=== PATIENT | female | born 1985 | race American Indian/Alaskan Native ===

== ENCOUNTER 2018-10-09 21:30 | Outpatient (CLI) | payer OTHER ==
[2018-10-09 22:04] VITALS: BP 124/65
[2018-10-10] MEDS ORDERED: LACTATED RINGERS 1,000 ML IV ONE (00:22)
== END 2018-10-09 22:55 | disposition home or self-care (01) ==
LOC: TRG 21:30 → LD 21:36 → TRG 22:55
PROVIDERS: ATTEND Obstetrics & Gynecology
DX: O60.03 Preterm labor without delivery, third trimester (principal); Z3A.39 39 weeks gestation of pregnancy
CPT/HCPCS: 59025

== ENCOUNTER 2018-10-12 14:20 | Outpatient (CLI) | payer OTHER ==
[2018-10-12 14:37] VITALS: BP 110/56
[2018-10-12] MEDS ORDERED: VISTARIL PO ONE (15:30)
[2018-10-12] MEDS ORDERED: VISTARIL ONE (15:40)
== END 2018-10-12 15:58 | disposition home or self-care (01) ==
LOC: TRG 14:20
PROVIDERS: ATTEND Obstetrics & Gynecology
DX: O47.1 False labor at or after 37 completed weeks of gestation (principal); Z3A.39 39 weeks gestation of pregnancy
CPT/HCPCS: 59025; Q0177

== ENCOUNTER 2018-10-12 22:45 | Inpatient (IN) | payer OTHER ==
[2018-10-12] MEDS ORDERED: SUBLIMAZE IV PRN (22:57)
[2018-10-12] MEDS ORDERED: STADOL IV PRN (22:57)
[2018-10-12] MEDS ORDERED: BRETHINE SUB-Q PRN ×2 (22:57→23:31)
[2018-10-12] MEDS ORDERED: MINERAL OIL PO PRN ×2 (22:57→23:31)
[2018-10-12] MEDS ORDERED: BRETHINE IVP PRN ×2 (22:57→23:31)
[2018-10-12] MEDS ORDERED: XYLOCAINE 2% INFILTRATI ONE ×2 (22:57→23:31)
[2018-10-12] MEDS ORDERED: AMPICILLIN/NS 2 GM/100 ML 2 GM/100 ML BAG IV ONE (22:57)
[2018-10-12] MEDS ORDERED: PITOCin/NS 20 UNIT/1000ML DRIP 20 UNITS/1,000 ML BAG IV SCH (23:00)
[2018-10-12] MEDS: LACTATED RINGERS 1,000 ML IV SCH (23:16)
--- NOTE | 2018-10-12 23:29 | History and Physical Report ---
History of Present Illness Date of examination: 10/12/18 Date of admission: 10/12/18 23:02 Chief complaint: Labor History of present illness: Pt is a 33yo BF EDC 10/13/18; EGA 39 6/7 weeks presents to L&D complaining of RUC's q 3-4 mins. She has not received care with this , but course has been unremarkable and GBS is unknown. Past History Past Medical History: asthma Past Surgical History: no surgical history Social history: no significant social history - Obstetrical History Expected Date of Delivery: 10/13/18 Actual Gestation: 40 Week(s) 0 Day(s) : 3 Medications and Allergies Allergies Allergy/AdvReac Type Severity Reaction Status Date / Time No Known Allergies Allergy Verified 10/12/18 22:57 Active Meds: Active Medications Butorphanol Tartrate (Stadol) 2 mg IV Q2H PRN PRN Reason: Pain , Severe (7-10) Ephedrine Sulfate (Ephedrine Sulfate) 10 mg IV Q2M PRN PRN Reason: Hypotension Fentanyl (Sublimaze) 100 mcg IV Q2H PRN PRN Reason: Labor Pain Last Admin: 10/12/18 23:20 Dose: 100 mcg Documented by: Oxytocin/Sodium Chloride (Pitocin/Ns 20 Unit/1000ml Drip) 20 units in 1,000 mls @ 125 mls/hr IV DIRECT ZHANNA Lactated Ringer's (Lactated Ringers) 1,000 mls @ 125 mls/hr IV DIRECT ZHANNA Last Admin: 10/12/18 23:16 Dose: 125 mls/hr Documented by: Ampicillin Sodium (Ampicillin/Ns 2 Gm/100 Ml) 2 gm in 100 mls @ 100 mls/hr IV ONCE ONE; Protocol Stop: 10/12/18 23:56 Last Admin: 10/12/18 23:15 Dose: 100 mls/hr Documented by: Ampicillin Sodium (Ampicillin/Ns 1 Gm/50 Ml) 1 gm in 50 mls @ 100 mls/hr IV Q4HR ZHANNA; Protocol Mineral Oil (Mineral Oil) 30 ml PO QHS PRN PRN Reason: Constipation Terbutaline Sulfate (Brethine) 0.25 mg SUB-Q ONCE PRN PRN Reason: Hyperstimulation/Hypertonicity Terbutaline Sulfate (Brethine) 0.25 mg IVP ONCE PRN PRN Reason: Hyperstimulation/Hypertonicity Review of Systems All systems: negative - Physical Exam Cardiovascular: Regular rate Lungs: Positive: Clear to auscultation Abdomen: Positive: normal appearance Genitourinary (Female): Positive: normal external genitalia Uterus: Positive: enlarged Extremities: Positive: normal - Obstetrical FHR: category 1 Uterine Contraction Monitor Mode: External Cervical Dilatation: 5.5 (per nurse) Cervical Effacement Percentage: 90 (per nurse) station: -1 Uterine Contraction Pattern: Regular Uterine Tone Measurement Phase: Contraction Uterine Contraction Intensity: Strong/Firm Results Result Diagrams: 10/12/18 23:15 All other labs normal. Assessment and Plan - Patient Problems (1) 39 weeks gestation of Onset Date: 10/12/18 Current Visit: Yes Status: Acute Plan to address problem: A: IUP @ 39 6/7 weeks in labor Limited care GBS unknown P: Admit to L&D for expectant vaginal delivery Obtain labs IV Ampicillin (2) Limited care in third trimester Onset Date: 10/12/18 Current Visit: Yes Status: Acute
[2018-10-12] MEDS ORDERED: LACTATED RINGERS 1,000 ML IV SCH (23:45)
[2018-10-12] MEDS ORDERED: PITOCin/NS 30 UNIT/500ML 30 UNITS/500 ML BAG IV SCH ×2 (23:45)
[2018-10-12 23:50] LABS: Hematocrit 30.8 % (30.3-42.9); Hemoglobin 9.7 gm/dl (10.1-14.3); Mean Corpuscular HGB Conc 32 % (30-34); Platelet Count 186 K/mm3 (140-440); Red Blood Count 4.44 M/mm3 (3.65-5.03); Red Cell Distribution Width 18.7 % (13.2-15.2)
[2018-10-12 23:52] LABS: Mean Corpuscular Volume 69 fl (79-97)
[2018-10-13 00:07] LABS: Hepatitis C Virus Antibody Non-Reactive (NonReactive)
[2018-10-13] MEDS: LACTATED RINGERS 1,000 ML IV SCH (00:17)
[2018-10-13] MEDS ORDERED: AMPICILLIN/NS 1 GM/50 ML 1 GM/50 ML BAG IV SCH (02:58)
--- NOTE | 2018-10-13 03:01 | Procedure Note ---
OB Delivery Note - Delivery Date of Delivery: 10/13/18 Surgeon: LALO RODRIGUEZ Estimated blood loss: 100cc - Vaginal Delivery presentation: vertex Delivery position: OA Intrapartum events: no care Delivery induction: none Delivery augmentation: pitocin Delivery monitor: external FHT, external uterine Route of delivery: Delivery placenta: spontaneous Delivery cord: 3 umbilical vessels Episiotomy: none Delivery laceration: none Anesthesia: none Delivery comments: delivered OA and placed on Mom's chest for [id number] bonding and delayed cord clamping, cut by Dad - Infant A at 1 minute: 8 at 5 minutes: 9 Infant Gender: Female ([id number])
[2018-10-13] MEDS ORDERED: PHENERGAN PO PRN (03:02)
[2018-10-13] MEDS ORDERED: TUCKS PAD TP PRN (03:02)
[2018-10-13] MEDS ORDERED: ZOFRAN IV PRN (03:02)
[2018-10-13] MEDS ORDERED: TYLENOL PO PRN (03:02)
[2018-10-13] MEDS ORDERED: MILK OF MAGNESIA PO PRN (03:02)
[2018-10-13] MEDS ORDERED: DULCOLAX PR PRN (03:02)
[2018-10-13] MEDS ORDERED: PHENERGAN PR PRN (03:02)
[2018-10-13] MEDS ORDERED: LANSINOH TP PRN (03:02)
[2018-10-13] MEDS ORDERED: BENADRYL PO PRN (03:02)
[2018-10-13] MEDS: IBUPROFEN PO SCH ×3 (03:28→18:09)
[2018-10-13] MEDS: PITOCin/NS 20 UNIT/1000ML DRIP 20 UNITS/1,000 ML BAG IV SCH ×2 (03:30→05:40)
[2018-10-13] MEDS ORDERED: SODIUM CHLORIDE FLUSH SYRINGE 10 ML IV NR (04:00)
[2018-10-13] MEDS ORDERED: PITOCin/NS 20 UNIT/1000ML DRIP 20 UNITS/1,000 ML BAG IV SCH (04:00)
[2018-10-13 06:17] LABS: Amphetamine Screen,Urine PRESUMPTIVE NEGATIVE; Benzodiazepines Screen,Urine PRESUMPTIVE NEGATIVE; Cannabinoid Screen,Urine PRESUMPTIVE NEGATIVE; Cocaine Screen,Urine PRESUMPTIVE NEGATIVE; Methadone Screen,Urine PRESUMPTIVE NEGATIVE; Opiate Screen,Urine PRESUMPTIVE NEGATIVE
[2018-10-13] MEDS: NORCO 5/325 PO PRN ×2 (10:33→21:10)
[2018-10-13] MEDS: FEOSOL PO SCH ×2 (10:33→21:10)
[2018-10-13] MEDS: PRENATAL VITAMIN PO SCH (10:33)
[2018-10-13] MEDS: COLACE PO SCH ×2 (10:34→21:10)
[2018-10-13 15:36] LABS: Hematocrit 30.4 % (30.3-42.9); Hemoglobin 9.6 gm/dl (10.1-14.3)
[2018-10-14] MEDS ORDERED: M-M-R II VACCINE SUB-Q ONE (06:00)
[2018-10-14] MEDS ORDERED: BOOSTRIX IM ONE (06:00)
--- NOTE | 2018-10-14 10:03 | Progress Note ---
Assessment and Plan - Patient Problems (1) 39 weeks gestation of Onset Date: 10/12/18 Current Visit: Yes Status: Resolved (2) Limited care in third trimester Onset Date: 10/12/18 Current Visit: Yes Status: Resolved (3) (normal spontaneous vaginal delivery) Onset Date: 10/14/18 Current Visit: Yes Status: Resolved Plan to address problem: A: S/P - PPD #1 Doing well Asymptomatic anemia - stable P: May go home tomorrow. Subjective - Subjective Date of service: 10/14/18 Principal diagnosis: s/p - PPD #1 Interval history: Pt is feeling well without complaints. Bleeding improved. Patient reports: appetite normal, voiding normally, pain well controlled, flatus, ambulating normally, no dizzy ambulation, no nauseated : doing well, nursing well Objective - Vital Signs Latest vital signs: Vital Signs Temp Pulse Resp BP BP Pulse Ox 10/14/18 01:02 98.4 F 63 18 116/63 99 10/13/18 16:25 97.9 F 67 18 125/72 98 Intake and Output 10/13/18 10/14/18 10/14/18 22:59 06:59 14:59 Intake Total 1800 360 Output Total 390 Balance 1410 360 Intake: Oral 840 Intake, Free Water 960 360 Output: Urine 390 Void 390 Other: Total, Intake Amount 600 Total, Output Amount 390 # Voids Void 2 1 # Bowel Movements 1 - Exam Breasts: Present: deferred Abdomen: Present: normal appearance, soft Uterus: Present: normal, firm, fundal height below umbilicus Extremities: Present: normal - Labs Labs: Abnormal lab results 10/13/18 Range/Units 15:25 Hgb 9.6 L (10.1-14.3) gm/dl Laboratory Tests 10/12/18 10/12/18 10/12/18 05:30 23:15 23:15 WBC 9.5 RBC 4.44 Hgb 9.7 L Hct 30.8 MCV 69 L MCH 22 L MCHC 32 RDW 18.7 H Plt Count 186 Urine Opiates Screen Presumptive negative Urine Methadone Screen Presumptive negative Ur Barbiturates Screen Presumptive negative Ur Phencyclidine Scrn Presumptive negative Ur Amphetamines Screen Presumptive negative U Benzodiazepines Scrn Presumptive negative Urine Cocaine Screen Presumptive negative U Marijuana (THC) Screen Presumptive negative Drugs of Abuse Note Disclamer RPR Nonreactive Hep Bs Antigen Hepatitis C Antibody HIV 1&2 Antibody Rapid HIV P24 Antigen Rubella IgG Antibody Blood Type Antibody Screen 10/12/18 10/12/18 10/12/18 23:15 23:15 23:15 WBC RBC Hgb Hct MCV MCH MCHC RDW Plt Count Urine Opiates Screen Urine Methadone Screen Ur Barbiturates Screen Ur Phencyclidine Scrn Ur Amphetamines Screen U Benzodiazepines Scrn Urine Cocaine Screen U Marijuana (THC) Screen Drugs of Abuse Note RPR Hep Bs Antigen Non-reactive Hepatitis C Antibody Non-reactive HIV 1&2 Antibody Rapid HIV P24 Antigen Rubella IgG Antibody Immune Blood Type O POSITIVE Antibody Screen Negative 10/12/18 10/13/18 23:15 15:25 WBC RBC Hgb 9.6 L Hct 30.4 MCV MCH MCHC RDW Plt Count Urine Opiates Screen Urine Methadone Screen Ur Barbiturates Screen Ur Phencyclidine Scrn Ur Amphetamines Screen U Benzodiazepines Scrn Urine Cocaine Screen U Marijuana (THC) Screen Drugs of Abuse Note RPR Hep Bs Antigen Hepatitis C Antibody HIV 1&2 Antibody Rapid Non react HIV P24 Antigen Non react Rubella IgG Antibody Blood Type Antibody Screen
[2018-10-14] MEDS: FEOSOL PO SCH ×2 (10:04→23:59)
[2018-10-14] MEDS: PRENATAL VITAMIN PO SCH (10:04)
[2018-10-14] MEDS: COLACE PO SCH (10:04)
--- NOTE | 2018-10-14 10:04 | Discharge Summary ---
Providers - Providers Date of Admission: 10/12/18 23:02 Date of discharge: 10/15/18 Attending physician: LALO RODRIGUEZ Primary care physician: SECURITY RISK ANALYST Hospitalization Reason for admission: active labor, rupture of membranes, IUP at term Delivery: Episiotomy: none Laceration: none Incision: normal Other procedures: none complications: none Discharge diagnosis: IUP at term delivered baby: female Hospital course: Unremarkable. Condition at discharge: Good Disposition: DC-01 TO HOME OR SELFCARE - Discharge Diagnoses (1) 39 weeks gestation of Status: Resolved (2) Limited care in third trimester Status: Resolved (3) (normal spontaneous vaginal delivery) Status: Resolved Plan - Discharge Medications Prescriptions: Ferrous Sulfate [Feosol 325 MG tab] 325 mg PO BID #60 tablet Ibuprofen [Motrin 600 MG tab] 600 mg PO Q6HR #30 tablet Vit-Fe Fumar-FA [ Vitamin] 1 each PO QDAY #30 tablet - Provider Discharge Summary Activity: routine, no sex for 6 weeks, no heavy lifting 4 weeks, no strenuous exercise Diet: routine Instructions: routine Additional instructions: [] Smoking cessation referral if applicable(refer to patient education folder for contact #) [] Refer to [facility]'s [facility] Booklet Call your doctor immediately for: * Fever > 100.5 * Heavy vaginal bleeding ( >1 pad per hour) * Severe persistent headache * Shortness of breath * Reddened, hot, painful area to leg or breast * Drainage or odor from incision. * Keep incision clean and dry at all times and follow doctor's instructions regarding bathing/showering - Follow up plan Follow up: KWAKU CROWDER MD [Primary Care Provider] - 6 Weeks LALO RODRIGUEZ MD [Staff Physician] - 6 Weeks
[2018-10-14] MEDS: IBUPROFEN PO SCH ×4 (11:35→23:59)
[2018-10-15] MEDS: IBUPROFEN PO SCH ×2 (05:14→11:43)
[2018-10-15] MEDS: COLACE PO SCH ×2 (09:50)
[2018-10-15] MEDS: PRENATAL VITAMIN PO SCH (09:50)
[2018-10-15] MEDS: FEOSOL PO SCH (09:50)
[2018-10-15 16:49] VITALS: BP 124/77
== END 2018-10-15 16:50 | disposition home or self-care (01) | DRG 807 ==
LOC: TRG 22:45 → LD 23:02 → OB 10-13 05:44
PROVIDERS: ADMIT Obstetrics & Gynecology; ATTEND Obstetrics & Gynecology
PROC: 10E0XZZ Delivery of Products of Conception, External Approach (ICD-10-PCS; principal; 2018-10-13)
PROC: 3E0234Z Introduction of Serum, Toxoid and Vaccine into Muscle, Percutaneous Approach (ICD-10-PCS; 2018-10-14)
DX: O99.52 Diseases of the respiratory system complicating childbirth (principal); Z37.0 Single live birth; O99.02 Anemia complicating childbirth; J45.909 Unspecified asthma, uncomplicated; Z3A.39 39 weeks gestation of pregnancy; Z23 Encounter for immunization
CPT/HCPCS: 36415; 80307; 85014; 85018; 85027; 86592; 86706; 86762; 86803; 86850; 86900; 86901; 87806; G0378; A6250; J0290; J2590; J3010; J7120